=== PATIENT | female | born 1990 | race Caucasian/White ===

== ENCOUNTER → 2017-04-14 08:06 | Outpatient (CLI) | payer BC, SELFPAY ==
[2017-02-14 15:47] VITALS: BP 110/73
[2017-04-14 07:57] VITALS: BP 116/81; BMI 28.0
[2017-04-14 09:29] LABS: Absolute Lymphocyte Count 2.89 X10^3/ul (0.83-4.51); Absolute Neutrophil Count 3.8 X10^3/uL (2.0-7.7); Basophil# 0.08 X10^3/uL; Basophil% 1.1 % (0-1); Eosinophil# 0.31 X10^3/uL; Eosinophils% 4.1 % (0-5); Hematocrit 37.3 % (37-47); Lymphocyte # 2.89 X10^3/ul (4.0); Lymphocyte % 38.1 % (19-41); Mean Corp Hgb Conc 32.2 g/gl (32-36); Mean Corpuscular Hgb 28.6 pg (27.0-32.0); Mean Corpuscular Volume 88.8 fL (81-99); Mean Platelet Vol. 11.2 fl (6.2-12.0); Monocyte% 6.6 % (0-10); Neutrophil # 3.79 X10^3/uL (2.7-7.7); Platelet Count 328 K/mm3 (150-450); RBC Distribution Width CV 13.3 % (11.6-14.6); RBC Distribution Width SD 42.9 fl (35.1-43.9); White Blood Count 7.6 K/mm3 (4.4-11.0)
[2017-04-14 09:34] LABS: POSITIVE COUNT NO; POSITIVE DIFFERENTIAL NO; POSITIVE MORPHOLOGY NO
[2017-04-14 09:56] LABS: Thyroid Stim Hormone (TSH) 1.69 uIU/mL (0.358-3.74)
== END ==
PROVIDERS: Visit Provider Obstetrics & Gynecology
DX: N93.9 Abnormal uterine and vaginal bleeding, unspecified (principal)
CPT/HCPCS: 36415; 84443; 85025

== ENCOUNTER → 2017-05-15 12:34 | Outpatient (CLI) | payer BC, SELFPAY ==
--- NOTE | 2017-05-15 12:30 | US_ITS ---
STUDY: ULTRASOUND OF THE FEMALE PELVIS - COMPLETE REASON FOR EXAM: Female, 27 years old. Abnormal uterine bleeding. LMP: Unknown. TECHNIQUE: Transabdominal and Transvaginal TECHNICAL QUALITY: Adequate. COMPARISON: None. FINDINGS: The uterus is anteverted and is in a midline position. The uterus measures 8.5 cm x 4.9 sinus by 3.9 cm. Normal uterine cervix. The endometrium measures 2.8 mm in thickness, and is fluid distended. There is no demonstrated endometrial mass. There is no demonstrated myometrial mass. I.U.D. - The patient does not have an I.U.D. The right ovary is visualized. The right ovary measures 2.9 cm x 1.7 cm x 2.0 cm. There is no right ovarian cyst or ovarian mass. There is no visualized right adnexal mass or complex lesion. There is normal arterial and normal venous vascularity. The left ovary is visualized. The left ovary measures 2.6 cm x 1.9 cm x 1 cm. There is no left ovarian cyst or ovarian mass. There is no visualized left adnexal mass or complex lesion. There is normal arterial and normal venous vascularity. There is no fluid in the cul-de-sac. Polycystic ovary disease: No. US/Pelvic (Non ) IMPRESSION: Normal female pelvis. Electronically Signed: Valdemar Armenta MD at 15:41 EST Tel [phone], Service support ,
--- NOTE | 2017-05-15 13:30 | US_ITS ---
STUDY: ULTRASOUND OF THE FEMALE PELVIS - COMPLETE REASON FOR EXAM: Female, 27 years old. Abnormal uterine bleeding. LMP: Unknown. TECHNIQUE: Transabdominal and Transvaginal TECHNICAL QUALITY: Adequate. COMPARISON: None. FINDINGS: The uterus is anteverted and is in a midline position. The uterus measures 8.5 cm x 4.9 sinus by 3.9 cm. Normal uterine cervix. The endometrium measures 2.8 mm in thickness, and is fluid distended. There is no demonstrated endometrial mass. There is no demonstrated myometrial mass. I.U.D. - The patient does not have an I.U.D. The right ovary is visualized. The right ovary measures 2.9 cm x 1.7 cm x 2.0 cm. There is no right ovarian cyst or ovarian mass. There is no visualized right adnexal mass or complex lesion. There is normal arterial and normal venous vascularity. The left ovary is visualized. The left ovary measures 2.6 cm x 1.9 cm x 1 cm. There is no left ovarian cyst or ovarian mass. There is no visualized left adnexal mass or complex lesion. There is normal arterial and normal venous vascularity. There is no fluid in the cul-de-sac. Polycystic ovary disease: No. US/Transvaginal Non- IMPRESSION: Normal female pelvis. Electronically Signed: Valdemar Armenta MD at 15:41 EST Tel [phone], Service support ,
== END ==
PROVIDERS: Family Provider Nurse Practitioner Family; PCP Nurse Practitioner Family; Visit Provider Nurse Practitioner Women's Health
DX: N93.9 Abnormal uterine and vaginal bleeding, unspecified (principal)
CPT/HCPCS: 76830; 76856

== ENCOUNTER → 2017-08-25 10:32 | Outpatient (CLI) | payer BC, SELFPAY ==
[2017-08-25 11:53] LABS: hCG Titer Quant., Serum 1470 mIU/mL (<9 non-preg)
== END ==
LOC: LAB 10:33
PROVIDERS: Family Provider Nurse Practitioner Family; PCP Nurse Practitioner Family; Visit Provider Nurse Practitioner Women's Health
DX: Z34.90 Encounter for supervision of normal pregnancy, unspecified, unspecified trimester (principal)
CPT/HCPCS: 36415; 84702

== ENCOUNTER → 2017-08-27 10:42 | Outpatient (CLI) | payer BC, SELFPAY ==
[2017-08-27 12:43] LABS: hCG Titer Quant., Serum 3148 mIU/mL (<9 non-preg)
== END ==
LOC: LAB 10:43
PROVIDERS: Family Provider Nurse Practitioner Family; PCP Nurse Practitioner Family; Visit Provider Nurse Practitioner Women's Health
DX: Z34.90 Encounter for supervision of normal pregnancy, unspecified, unspecified trimester (principal)
CPT/HCPCS: 36415; 84702

== ENCOUNTER → 2017-09-12 09:04 | Outpatient (CLI) | payer BC, SELFPAY ==
[2017-09-12 09:35] LABS: Absolute Neutrophil Count 4.5 X10^3/uL (2.0-7.7); Basophil# 0.04 X10^3/uL; Basophil% 0.5 % (0-1); Eosinophil# 0.11 X10^3/uL; Eosinophils% 1.5 % (0-5); Hematocrit 37.1 % (37-47); Hemoglobin 12.4 g/dl (12.0-15.0); Lymphocyte % 29.9 % (19-41); Mean Corp Hgb Conc 33.4 g/gl (32-36); Mean Corpuscular Hgb 28.5 pg (27.0-32.0); Mean Corpuscular Volume 85.3 fL (81-99); Mean Platelet Vol. 10.9 fl (6.2-12.0); Monocyte# 0.47 X10^3/uL; Monocyte% 6.4 % (0-10); Neutrophil # 4.52 X10^3/uL (2.7-7.7); Neutrophil % 61.6 % (47-70); Platelet Count 305 K/mm3 (150-450); RBC Distribution Width CV 14.1 % (11.6-14.6); RBC Distribution Width SD 43.4 fl (35.1-43.9); Red Blood Count 4.35 M/mm3 (4.2-5.4); White Blood Count 7.4 K/mm3 (4.4-11.0)
[2017-09-12 09:36] LABS: POSITIVE COUNT NO; POSITIVE DIFFERENTIAL NO; POSITIVE MORPHOLOGY NO
[2017-09-12 13:24] LABS: HIV - WCH Non-Reactive (Nonreactive); Rubella IgG 35.5 IU/mL
[2017-09-12 16:02] LABS: Chlamydia Trachomatis by PCR Negative (Negative); Neisserai gonorrhoeae by PCR Negative (Negative); Probe Check PASS; Sample Adequacy Control PASS; Specimen Processing Control PASS
[2017-09-15 10:08] LABS: HEPATITIS B SURFACE AG Negative (Negative)
[2017-09-16 09:14] LABS: HPV Reflexed? NOT INDICATED
[2017-09-19 02:40] LABS: Rapid Plasmin Reagin (RPR) NONREACTIVE (NONREACTIVE)
== END ==
PROVIDERS: Family Provider Nurse Practitioner Family; PCP Nurse Practitioner Family; Visit Provider Obstetrics & Gynecology
DX: O09.90 Supervision of high risk pregnancy, unspecified, unspecified trimester (principal); R87.612 Low grade squamous intraepithelial lesion on cytologic smear of cervix (LGSIL); Z3A.00 Weeks of gestation of pregnancy not specified
CPT/HCPCS: 36415; 85025; 86592; 86703; 86762; 86850; 86900; 87086; 87088; 87340; 87491; 87591; 88175; G0145

== ENCOUNTER → 2017-10-06 11:27 | Outpatient (CLI) | payer BC, SELFPAY ==
[2017-10-08 03:08] LABS: Dilute Russell Viper Venom 36.5 sec (0.0-47.0)
[2017-10-09 17:04] LABS: Beta-2-Glycoprotein I IgA <9 (0-25); Beta-2-Glycoprotein I IgG <9 (0-20); Beta-2-Glycoprotein I IgM <9 (0-32)
== END ==
PROVIDERS: Family Provider Nurse Practitioner Family; PCP Family Medicine
DX: Z87.59 Personal history of other complications of pregnancy, childbirth and the puerperium (principal)
CPT/HCPCS: 36415; 85613; 86146

== ENCOUNTER → 2017-10-10 10:39 | Outpatient (CLI) | payer BC, SELFPAY | PROVIDERS: Family Provider Family Medicine; PCP Family Medicine; Visit Provider Nurse Practitioner Women's Health | DX: Z34.81 Encounter for supervision of other normal pregnancy, first trimester (principal); Z87.738 Personal history of other specified (corrected) congenital malformations of digestive system | CPT/HCPCS: 36415 ==

== ENCOUNTER 2017-11-05 21:40 | Inpatient (IN) | payer BC, SELFPAY ==
[2017-11-05 21:55] VITALS: BMI 29.3
--- NOTE | 2017-11-06 | PLAC_PTH ---
PATIENT: SARWAT BLANCO LOC: [facility] U#:[id number] AGE/SX: 27/F ROOM: WP021 RE11/05/[address]: Dr. Shayy Zavala MD : 1990 BED: 1 DIS: 11/06/2017 SPEC #: [id number] RECD: 11/06/17 13:51 STATUS: JACLYN REMatilde #: [id number] CARLOS: 11/06/17 00:[address]: Shayy Zavala DEPT: SURGICAL PATHOLOGY RECD BY: Octaviano Sierra ENTERED: 11/06/17 13:51 SP TYPE: PLACENTA OTHR DR: Francisca Heredia DO Tissues: Placenta, NOS Procedures: Surgery Specimen Level IV HEADER OPERATION: Vaginal delivery PRE-OP DIAGNOSIS: demise 15.2 TISSUE SUBMITTED: Placenta MICROSCOPIC DIAGNOSIS Placenta: Immature placental tissue (95 gm), membranes and umbilical cord, no pathologic diagnosis. SJ:flavio 9/4/18 MICROSCOPIC DESCRIPTION Slides are reviewed. GROSS DESCRIPTION Received is one container labeled with the patient's name and not further designated. The specimen consists of macerated placental tissue and blood clots that in aggregate measure 14 x 12 x 2 cm. The placental tissue weighs 95 gm. A 4.5 cm segment of umbilical cord is attached centrally to the placental disc. The placental disc measures 12 x 8 x 2 cm. Documentation Engineer sections are submitted in six cassettes as follows: 1 ? membranes, 2 ? membranes and umbilical cord, 3-6 - placental disc. / AM:flavio 11/07/17 TC:5 CPT: 47892
[2017-11-06 01:17] LABS: Hematocrit 35.5 % (37-47); Hemoglobin 12.2 g/dl (12.0-15.0); Mean Corp Hgb Conc 34.4 g/gl (32-36); Mean Corpuscular Volume 84.3 fL (81-99); Mean Platelet Vol. 11.6 fl (6.2-12.0); Platelet Count 333 K/mm3 (150-450); RBC Distribution Width CV 13.3 % (11.6-14.6); RBC Distribution Width SD 40.6 fl (35.1-43.9); Red Blood Count 4.21 M/mm3 (4.2-5.4); White Blood Count 8.7 K/mm3 (4.4-11.0)
[2017-11-06 01:18] LABS: Scan Indicated on CBC? Y/N NO
[2017-11-06 01:31] LABS: Hemoglobin A1c 5.5 % (4.2-6.3)
[2017-11-06 02:01] LABS: Thyroid Stim Hormone (TSH) 1.62 uIU/mL (0.358-3.74)
[2017-11-06] MEDS: miSOPROStol 200 MCG Tablet 400 MCG PO (02:04)
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
[2017-11-06] MEDS: miSOPROStol 200 MCG Tablet PO ×2 (06:09→10:07)
[2017-11-06] MEDS: Nalbuphine 10 MG/ML Ampul IV (08:11)
[2017-11-06] MEDS: 0.9% Saline Lock 10 ML Syringe IV ×2 (08:12→13:34)
[2017-11-06] MEDS: Oxytocin 30 units/NS 500 ml 30 UNITS/500 ML IV.SOLN 334 UNITS IV (09:50)
[2017-11-06] MEDS: Oxytocin 30 units/NS 500 ml 30 UNITS/500 ML IV.SOLN 167 UNITS IV (10:20)
[2017-11-06 14:20] VITALS: BP 112/72; PULSE 88; RESP 16; TEMP 36.6
--- NOTE | 2017-11-06 15:59 | PCM.DCVAG ---
Discharge Diet: No Restrictions Discharge Activity: Return to Normal Activity, May not drive while taking narcotic pain medications., May Shower May resume sexual activity in: 4-6 weeks Call your doctor if your incision/area has: Continuous Slow Oozing, Sudden Increased Bleeding, Increased Pain/ Swelling, Increased Redness, Foul Smelling Discharge Additional Instructions: If you experience any of the following, contact your healthcare provider. Bleeding that soaks a pad every hour for 2 hours Fever 100.4 or higher Unrelieved incision or abdominal pain Swelling, redness, discharge or bleeding from your incision or episiotomy site Your incision begins to separate Problems urinating (including inability to urinate or burning while urinating). Visual changes Severe headache Flu-like symptoms Pain or redness in one of both of your breasts Pain, warmth, tenderness or swelling in your legs, especially the calf area Frequent nausea and vomiting Symptoms of depression or anxiety If you experience any of the following, call 911 or go to the nearest Emergency Room. Chest pain Problems breathing Seizure activity Partial or complete paralysis of a body part, slurred speech, weakness or drooping of the face, or a sudden inability to walk or hold your balance Allergies/Adverse Reactions: Allergies No Known Allergies Allergy (Verified 11/05/17 21:57) Medications to take at Discharge sertraline 50 mg tablet 50 mg PO QDAY 09/12/17 Please Follow Up With: Shayy Zavala MD - [phone] When: Call to make an appointment with your doctor in 6 weeks. If you had elevated Blood pressure or 4th degree laceration you will need to be seen in 2 weeks. Primary Care Physician: Francisca Heredia MD [Primary Care Provider] - Test Results: Test results from this visit will be discussed in further detail at your follow-up appointment, if applicable.
[2017-11-06 16:30] VITALS: BP 121/85; PULSE 87; RESP 16; TEMP 36.2
--- NOTE | 2017-11-06 16:47 | NURSING ---
[facility] here to take baby, pt aware that Dakota [facility] will call pt in AM to make arrangements.
--- NOTE | 2017-11-06 21:36 | PCM.OB.VAG ---
- Problem List (1) IUFD at less than 20 weeks of gestation Status: Acute (2) screening encounter Status: Acute Comment: Plan NIPT- Wants gender to be a surprise- when results come back place in envelope- Low risk, fraction 6.4% (3) History of gastroschisis Status: Acute Comment: mfm consult for anatomy scan (4) History of oligohydramnios Status: Acute Comment: growth us third trimester, Weekly NST starting at 32 weeks (5) History of delivery Status: Acute Comment: x 2 plans repeat and BTL (6) Anxiety and depression Status: Acute Comment: marieoft, counseling (7) History of IUFD Status: Acute Comment: 16 week loss, gastroschesis. third trimester growth us and nsts in the third trimester >32 weeks Vaginal Delivery Maternal Presentation: Medically Indicated Induction iol demise Method of Induction: Cytotec Amniotic Membrane Rupture Type: Spontaneous Amniotic Fluid Description: Clear Final SREE: 04/27/18 Gestational age: 15 Weeks and 3 Days Date of Procedure: 11/06/17 Pre-Operative Diagnosis: iufd Post-Operative Diagnosis: same Surgery/ Procedure Performed: Spontaneous Vaginal Delivery Description of Procedure: patient began feeling increased pain and delivered spontaneously the fetus and the cord was clamped and cut by the nurse. this provider arrived a few minutes after delivery and bleeding was stable. exp management for the placenta was done and after 2 hours the placenta delivered in 3 separate pieces that were all noted to be spontaneously expelled into the vagina. a third of the placenta was noted to be infarcted from an abruption. speculum exam was performed and the placenta was confirmed to be completely removed. Presentation: Vertex Placental Delivery Description: Spontaneous Placenta Disposition: [facility] Percentage of Placenta Abruption: 30 Cord Vessel Description: 3 Vessels Cord Entanglement: None Estimated Blood Loss: 100 Infant A gender: Male (1 minute): 0 Episiotomy Description: None Laceration: None Medications given after delivery: IV Pitocin Complications: None
[2017-11-07 10:16] LABS: Kleihauer-Betke Negative
[2017-11-08 03:07] LABS: Dilute Prothrombin Time (dPT) 47.4 sec (0.0-55.0); Dilute Russell Viper Venom 38.5 sec (0.0-47.0); PTT-LA 30.5 sec (0.0-51.9); Thrombin Time 15.9 sec (0.0-23.0); dPT Confirm Ratio 1.24 Ratio (0.00-1.40)
[2017-11-10 12:59] LABS: Interpretation Comment: (.)
[2017-11-11 14:41] LABS: Pathology Specimen OB SEE PATHOLOGY REPORT
== END 2017-11-06 16:45 | disposition home or self-care (01) | DRG 770 ==
PROVIDERS: Admitting Provider Obstetrics & Gynecology; Family Provider Family Medicine; PCP Family Medicine; Visit Provider Obstetrics & Gynecology
DX: O02.1 Missed abortion (principal); O45.92 Premature separation of placenta, unspecified, second trimester; O42.012 Preterm premature rupture of membranes, onset of labor within 24 hours of rupture, second trimester; O43.81 Placental infarction; O99.344 Other mental disorders complicating childbirth; F32.9 Major depressive disorder, single episode, unspecified; F41.9 Anxiety disorder, unspecified; F43.10 Post-traumatic stress disorder, unspecified; X58.XXXA Exposure to other specified factors, initial encounter; Z3A.15 15 weeks gestation of pregnancy; Z37.1 Single stillbirth; Z87.891 Personal history of nicotine dependence; Z87.59 Personal history of other complications of pregnancy, childbirth and the puerperium
CPT/HCPCS: 81241; 83036; 84443; 85027; 85460; 86850; 86900; 88305; 88307; 99218; A4216; G0378

== ENCOUNTER → 2018-05-05 09:14 | Outpatient (CLI) | payer BC, SELFPAY ==
[2018-05-05 08:51] VITALS: BMI 31.2
[2018-05-05 10:03] LABS: Estradiol 168.2 pg/mL; Prolactin 9.4 ng/mL
[2018-05-07 04:09] LABS: DHEA Sulfate 65.5 ug/dL (84.8-378.0)
[2018-05-07 12:15] LABS: Testosterone Free 0.9 pg/mL (0.0-4.2)
[2018-05-10 09:44] LABS: 17-Hydroxyprogesterone 80 ng/dL (.)
== END ==
LOC: PAVLAB 09:16
PROVIDERS: Family Provider Family Medicine; PCP Family Medicine; Referring Provider Nurse Practitioner Women's Health; Visit Provider Nurse Practitioner Women's Health
DX: N92.6 Irregular menstruation, unspecified (principal); R53.83 Other fatigue
CPT/HCPCS: 36415; 82627; 82670; 83498; 84146; 84402; 82626

== ENCOUNTER → 2018-06-16 | Outpatient (CLI) | payer BC, SELFPAY ==
[2018-06-16 13:49] VITALS: BMI 31.2
[2018-06-16 20:35] LABS: Chlamydia Trachomatis by PCR Negative (Negative); Neisserai gonorrhoeae by PCR Negative (Negative); Probe Check PASS; Sample Adequacy Control PASS; Specimen Processing Control PASS
== END | disposition home or self-care (01) ==
PROVIDERS: Referring Provider Obstetrics & Gynecology; Visit Provider Obstetrics & Gynecology
DX: Z34.90 Encounter for supervision of normal pregnancy, unspecified, unspecified trimester (principal)
CPT/HCPCS: 87077; 87086; 87088; 87186; 87491; 87591

== ENCOUNTER → 2018-06-30 13:47 | Outpatient (CLI) | payer MEDICAID, SELFPAY ==
[2018-06-16 13:11] VITALS: BMI 31.2
[2018-06-16 13:49] VITALS: BMI 31.2
--- NOTE | 2018-06-30 13:53 | US_ITS ---
STUDY: FIRST TRIMESTER OBSTETRICAL ULTRASOUND REASON FOR EXAM: Female, 28 years old. Initial dates. . LMP: 04/18/2017 . Estimated gestational age 10 week 3 day with SREE 01/23/2019. TECHNIQUE: Transabdominal and transvaginal. Transvaginal imaging obtained from Assessment of endometrial contents and deep adnexal structures. PRIOR ULTRASOUND: None. FINDINGS: Single live intrauterine gestation, abnormally elongated gestational sac, mean sac diameter 28.8 mm correlating with 8 week 1 day gestation. Yolk sac 4.2 mm. [place]-rump length 2.5 to centimeters correlating with 9 week 2 day gestation. No detected cardiac activity. Estimated gestational age (ultrasound) 8 week 5 day. No free fluid. Normal uterus. Normal bilateral ovaries. 1.4 cm cyst within the right ovary, slender septations, likely representing a corpus the tubes cyst . No apparent adnexal mass or suspicious cyst. US/Init OB < 14Wks US IMPRESSION: Absent cardiac activity, size discordant with expected dates, abnormal morphology of the gestational sac, intrauterine gestation, most consistent with demise. Electronically Signed: Kushal Heard MD at 15:10 EDT Tel , Service support ,
== END ==
PROVIDERS: Family Provider Family Medicine; PCP Family Medicine; Referring Provider Obstetrics & Gynecology; Visit Provider Obstetrics & Gynecology
DX: O09.299 Supervision of pregnancy with other poor reproductive or obstetric history, unspecified trimester (principal); Z3A.00 Weeks of gestation of pregnancy not specified
CPT/HCPCS: 76801

== ENCOUNTER 2018-07-02 10:11 | Day surgery (SDC) | payer BC, MEDICAID, SELFPAY ==
[2018-06-30 16:29] VITALS: BMI 30.7
[2018-07-02] VITALS (7 sets, daily range): BP systolic 108–122; BP diastolic 72–91; PULSE 72–89; RESP 16–18; TEMP 36.8–37.6; O2SAT 93–100; BMI 30.6
[2018-07-02] MEDS: Doxycycline 100 MG CAPSULE PO (10:36)
[2018-07-02 10:40] LABS: Hematocrit 36.2 % (37-47); Hemoglobin 12.1 g/dl (12.0-15.0); Mean Corp Hgb Conc 33.4 g/gl (32-36); Mean Corpuscular Hgb 27.4 pg (27.0-32.0); Mean Corpuscular Volume 81.9 fL (81-99); Mean Platelet Vol. 10.4 fl (6.2-12.0); Platelet Count 288 K/mm3 (150-450); RBC Distribution Width CV 14.5 % (11.6-14.6); RBC Distribution Width SD 43.7 fl (35.1-43.9); Red Blood Count 4.42 M/mm3 (4.2-5.4); White Blood Count 5.8 K/mm3 (4.4-11.0)
[2018-07-02 10:41] LABS: Scan Indicated on CBC? Y/N NO
--- NOTE | 2018-07-02 11:55 | POC_PTH ---
PATIENT: SARWAT BLANCO LOC: [facility] [place] U#:[id number] AGE/SX: 28/F ROOM: RE07/02/[address]: Dr. Shayy Zavala MD : 1990 BED: DIS: 07/02/2018 SPEC #: [id number] RECD: 07/02/18 15:53 STATUS: JACLYN REMatilde #: [id number] CARLOS: 07/02/18 11:[address]: Shayy Zavala DEPT: SURGICAL PATHOLOGY RECD BY: Jimmie Cerrato ENTERED: 07/03/18 08:32 SP TYPE: PROD CONC OTHR DR: Dr. Francisca Restrepo, DO Tissues: Product of conception, NOS Procedures: Surgery Specimen Level IV HEADER OPERATION: Laparoscopic, tubal occlusion with Filshie, dilation and curettage PRE-OP DIAGNOSIS: Missed AB TISSUE SUBMITTED: Products of conception MICROSCOPIC DIAGNOSIS Products of conception: [place], gestational endometrium and immature chorionic villi (products of conception). JOSIE:flavio 07/06/18 MICROSCOPIC DESCRIPTION Slides are reviewed. GROSS DESCRIPTION Received in fixative is one container labeled with the patient's name and designated products of conception. The specimen consists of multiple fragments of hemorrhagic soft tissue that in aggregate measure 10 x 8 x 3 cm. tissue is not identified. Supervisor Garment Manufacturing sections are submitted in two cassettes. / JOSIE:flavio 07/03/18 TC:5 CPT: 51521
[2018-07-02] MEDS: Silver Nitrate (BKC) 1 EACH (13:12)
[2018-07-02] MEDS: miSOPROStol 200 MCG Tablet (13:22)
[2018-07-02] MEDS: Bupivacaine 0.25% 30 ML Vial (13:30)
--- NOTE | 2018-07-02 13:35 | PCM.OPRPT ---
Problem List (1) Sterilization consult Status: Acute (2) Missed Status: Acute (3) Anxiety and depression Status: Acute Comment: zoloft 100mg, counseling Report of Operation Date of Procedure: 07/02/18 Pre-Operative Diagnosis: sterilization missed ab Post-Operative Diagnosis: same Surgery/Procedure Performed:: suction d and c laparoscopic bilateral tubal ligation justino Description of Surgical Findings:: normal uterus drill rig operator helper: Mary Basurto Type of Anesthesia:: General Special Medications: cytotec pitocin Specimen's removed: emc poc Drains: none Estimated Blood Loss (mL): 200 Fluids Replaced: crystalloid Description of Procedure: Patient was taken to the operating room and placed under general anesthesia. She was prepped and draped in the normal sterile fashion the dorsal lithotomy position. Bladder was drained of clear urine and anterior lip of the cervix was grasped and the uterus sounded to 10 cm. Cervix was progressively dilated to allow passage of a 9 and then 10 suction curette. Progressive passes were made removing the retained products of conception without complication. Sharp curettage confirmed complete removal of the retained products. Increased bleeding was noted and therefore Cytotec and Pitocin was given. All instruments were removed from the vagina and excellent hemostasis was noted. Attention was then paid to the abdominal portion of the procedure and the umbilicus was elevated with towel clamps and injected with Marcaine and after a 5 mm incision was made and the Veress needle was entered into the abdomen confirmed to be intra-abdominal with a low opening pressure of less than 5 mmHg. Abdomen was insufflated with CO2 gas and a 5 mm optical trocar was placed under direct visualization. An 8 mm port was placed under direct visualization in the suprapubic area. Uterus was well visualized and bilateral fallopian tubes identified and Filshie clips were applied bilaterally across the mid interstitial portion of the fallopian tube. Correct placement was confirmed and bilateral ovaries were noted to be within normal limits. Liver and upper abdomen were visualized notably within normal limits and no other gross after maladies were seen in the abdomen. All instruments removed from the abdomen after gas was desufflated. Port sites were closed with 3-0 Monocryl Steri's and op sites were applied. All instruments removed from the vagina and patient was awoken and taken recovery in stable condition. Grafts/Implants Used: filshie clips - Complications none
--- NOTE | 2018-07-02 13:39 | OP.PCM_ITS ---
Problem List (1) Sterilization consult Status: Acute (2) Missed Status: Acute (3) Anxiety and depression Status: Acute Comment: zoloft 100mg, counseling Report of Operation Date of Procedure: 07/02/18 Pre-Operative Diagnosis: sterilization missed ab Post-Operative Diagnosis: same Surgery/Procedure Performed:: suction d and c laparoscopic bilateral tubal ligation justino Description of Surgical Findings:: normal uterus software systems architect: Mary Basurto Type of Anesthesia:: General Special Medications: cytotec pitocin Specimen's removed: emc poc Drains: none Estimated Blood Loss (mL): 200 Fluids Replaced: crystalloid Description of Procedure: Patient was taken to the operating room and placed under general anesthesia. She was prepped and draped in the normal sterile fashion the dorsal lithotomy position. Bladder was drained of clear urine and anterior lip of the cervix was grasped and the uterus sounded to 10 cm. Cervix was progressively dilated to allow passage of a 9 and then 10 suction curette. Progressive passes were made removing the retained products of conception without complication. Sharp curettage confirmed complete removal of the retained products. Increased bleeding was noted and therefore Cytotec and Pitocin was given. All instruments were removed from the vagina and excellent hemostasis was noted. Attention was then paid to the abdominal portion of the procedure and the umbilicus was elevated with towel clamps and injected with Marcaine and after a 5 mm incision was made and the Veress needle was entered into the abdomen confirmed to be intra-abdominal with a low opening pressure of less than 5 mmHg. Abdomen was insufflated with CO2 gas and a 5 mm optical trocar was placed under direct visualization. An 8 mm port was placed under direct visualization in the suprapubic area. Uterus was well visualized and bilateral fallopian tubes identified and Filshie clips were applied bilaterally across the mid interstitial portion of the fallopian tube. Correct placement was confirmed and bilateral ovaries were noted to be within normal limits. Liver and upper abdomen were visualized notably within normal limits and no other gross after maladies were seen in the abdomen. All instruments removed from the abdomen aft er gas was desufflated. Port sites were closed with 3-0 Monocryl Steri's and op sites were applied. All instruments removed from the vagina and patient was awoken and taken recovery in stable condition. Grafts/Implants Used: filshie clips - Complications none
--- NOTE | 2018-07-02 13:41 | DCINST_ITS ---
Discharge Diet: No Restrictions - Increase fluid intake for the next 48 hours. Discharge Activity: Return to Normal Activity, May Drive - when you are no longer taking narcotic pain medications., May Shower, May Take a Tub Bath - in 7 days Additional Activity Instructions:: Ambulate often the next week after surgery. Nothing in the vagina for 5 days. Call your doctor if your incision/area has: Continuous Slow Oozing, Sudden Increased Bleeding, Increased Pain/ Swelling, Increased Redness, Foul Smelling Discharge Call your doctor if you observe: Fever of 101 or Higher Allergies/Adverse Reactions: Allergies No Known Allergies Allergy (Verified 07/02/18 10:40) Medications to take at Discharge sertraline 50 mg tablet 100 mg PO QDAY 09/12/17 ergocalciferol (vitamin D2) 50,000 unit capsule 50,000 unit PO QWEEK 05/05/18 vitamin#30 30 mg iron-10 mg iron-folic acid 1 mg-omg3 capsule 1 cap PO DAILY cap 06/16/18 Naproxen [Naprosyn] 250 - 500 mg PO Q8H PRN PRN #30 tablet 07/02/18 Oxycodone HCl/Acetaminophen [Percocet 5-325] 1 - 2 tablet PO Q4H PRN PRN 7 Days #15 tablet 07/02/18 The following prescriptions were given: Oxycodone HCl/Acetaminophen [Percocet 5-325] 1 - 2 tablet PO Q4H PRN PRN 7 Days #15 tablet PRN Reason: Pain Naproxen [Naprosyn] 250 - 500 mg PO Q8H PRN PRN #30 tablet PRN Reason: MILD PAIN Primary Care Physician: Francisca Restrepo DO [Primary Care Provider] - Test Results: Test results from this visit will be discussed in further detail at your follow- up appointment, if applicable. Please Follow Up With: Shayy Zavala MD - [phone]
== END 2018-07-02 15:56 | disposition home or self-care (01) ==
LOC: SDC 10:14 → AC 10:15
PROVIDERS: Family Provider Family Medicine; PCP Family Medicine; Referring Provider Obstetrics & Gynecology; Visit Provider Obstetrics & Gynecology
PROC: (CPT 58661; 2018-07-02 11:40)
DX: O03.4 Incomplete spontaneous abortion without complication (principal); Z30.2 Encounter for sterilization; F32.9 Major depressive disorder, single episode, unspecified; F41.9 Anxiety disorder, unspecified; Z87.891 Personal history of nicotine dependence
CPT/HCPCS: 01965; 58671; 59812; 36415; 85027; 86850; 86900; 88305; J7120; J2405

== ENCOUNTER 2021-05-21 09:39 | Outpatient (CLI) | payer BC, SELFPAY ==
[2021-05-25 16:07] LABS: HPV APTIMA, High Risk Negative (Negative)
== END 2021-05-21 23:59 | disposition home or self-care (01) ==
LOC: LABSPEC 05-22 09:40
PROVIDERS: PCP Family Medicine; Visit Provider Obstetrics & Gynecology
DX: Z12.4 Encounter for screening for malignant neoplasm of cervix (principal)
CPT/HCPCS: 87624; 88175; G0145